=== PATIENT | female | born 1965 | race Caucasian/White ===

== ENCOUNTER 2017-12-10 20:07 | Emergency (ER) | payer OTHER ==
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
[2017-12-10 20:33] VITALS: BP 140/86; PULSE 97; BMI 37.3
[2017-12-10] MEDS ORDERED: KETOROLAC TROMETHAMINE 30 MG/1 ML VIAL IM ONE (20:34)
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
[2017-12-10] MEDS ORDERED: ACETAMINOPHEN 325 MG TABLET (FP) PO ONE (22:41)
[2017-12-11] MEDS ORDERED: KETOROLAC TROMETHAMINE 30 MG/1 ML VIAL IVPUSH ONE (01:11)
[2017-12-11] MEDS ORDERED: KETOROLAC TROMETHAMINE 60 MG/2 ML VIAL IM ONE (01:14)
[2017-12-11] MEDS ORDERED: KETOROLAC TROMETHAMINE 30 MG/1 ML VIAL ONE (01:17)
== END 2017-12-11 01:43 | disposition home or self-care (01) ==
LOC: JER 20:07
PROC: 3E0333Z Introduction of Anti-inflammatory into Peripheral Vein, Percutaneous Approach (ICD-10-PCS; principal; 2017-12-10)
DX: S16.1XXA Strain of muscle, fascia and tendon at neck level, initial encounter (principal); V43.62XA Car passenger injured in collision with other type car in traffic accident, initial encounter; Y92.414 Local residential or business street as the place of occurrence of the external cause; Y93.89 Activity, other specified; Y99.9 Unspecified external cause status; I10 Essential (primary) hypertension; E11.9 Type 2 diabetes mellitus without complications; Z79.4 Long term (current) use of insulin; Z79.82 Long term (current) use of aspirin
CPT/HCPCS: 70450-TC; 72125-TC; 99281-25